=== PATIENT | male | born 1955 | race African-American/Black ===

== ENCOUNTER → 2017-05-04 | Outpatient (CLI) | payer MEDICARE ==
[~2017-05-04] MED LIST: ASPI325T8 PO; EMTR1TAB8 PO; IBUP-1060 PO; RALT400T PO; ZOLP5TAB PO
--- NOTE | 2017-05-04 10:52 | KCIC ---
EXAM: Lumbar spine MRI without contrast. HISTORY: Lower back pain. Right sided sciatica. Right leg weakness. TECHNIQUE: Multiplanar, multisequence magnetic resonance imaging of the lumbar spine was performed without contrast. COMPARISON: None. FINDINGS: There is lumbar levoscoliosis centered at L4. There is no significant listhesis. There is degenerative endplate remodeling with disc space narrowing, osteophytosis and Schmorl's node formation primarily along the right aspect of L4-L5. This corresponds with the level of maximum scoliotic concavity. There are laminectomy changes at L2-L5. The conus terminates at T12-L1. There is a mild chronic left anterior wedge deformity at T12. There is also mild decreased vertebral body height due to degenerative change along the right aspect of L4. The remainder of the vertebral bodies are normal in height. No suspicious osseous lesion is seen. There are multiple endplate Schmorl's nodes. The nerve roots are distributed peripherally at the lower lumbar vertebral levels. There is no convincing nerve root clumping. At T11-T12, there is a posterior central disc protrusion superimposed on a disc bulge and endplate remodeling. There is mild facet arthropathy. The neural foramina are excluded from the [id number]. There is no significant central canal stenosis. At T12-L1, there is mild left greater than right facet arthropathy. There is no stenosis. At L1-L2, there is moderate bilateral facet arthropathy. There is hypertrophy of the ligamentum flavum. There is mild central canal stenosis. At L2-L3, there is a disc bulge and endplate osteophytosis. There is laminectomy decompression. There is no stenosis. At L3-L4, there is a left foraminal to extra foraminal disc protrusion superimposed on a diffuse disc bulge and endplate osteophytosis. There is moderate facet arthropathy. There is laminectomy decompression. There is mild right and moderate to severe left foraminal stenosis with effacement of the exiting left L3 nerve root. At L4-L5, there are bilateral paracentral to extraforaminal disc protrusions superimposed on a disc bulge and right lateral predominant endplate osteophytosis. There is laminectomy decompression. There is severe right and mild to moderate left foraminal stenosis with effacement of the exiting right L4 nerve root and abutment of the exiting left L4 nerve root. At L5-S1, there is mild bilateral facet arthropathy. There is no stenosis. IMPRESSION: 1. Multilevel degenerative change throughout the lower thoracic and lumbar spine, described in detail above. This results in mild right and moderate to severe left foraminal stenosis at L3-L4 and severe right and [id number] left foraminal stenosis at L4-L5. 2. Laminectomy decompression changes at L2-L5. 3. Levoscoliosis centered at L4. 4. Peripheral distribution of the nerve root at the lower lumbar levels. 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 Electronically signed by: Ilda Kimbrough MD (05/04/2017 10:49 AM) [id number]
== END | disposition home or self-care (01) ==
LOC: KCIC MRI 09:22
PROVIDERS: ATTEND Nurse Practitioner Adult Health
DX: M54.41 Lumbago with sciatica, right side (principal); M48.061 Spinal stenosis, lumbar region without neurogenic claudication; M51.46 Schmorl's nodes, lumbar region; G03.8 Meningitis due to other specified causes; M54.16 Radiculopathy, lumbar region; R53.1 Weakness
CPT/HCPCS: 72148

== ENCOUNTER → 2017-05-26 | Outpatient (CLI) | payer MEDICARE ==
--- NOTE | 2017-05-26 12:18 | KCIC ---
MRI Cervical Spine Without Contrast History: Radicular pain, left-sided pain into the shoulder and scapula, neck pain for years Technique: Multiplanar, multi sequential noncontrast MR imaging was performed of the cervical spine. Comparison: None Findings: There is some motion degradation. Cervical vertebral body stature is preserved. There is mild reversal of the lordotic curvature at C5-C6. There is moderate to severe degenerative disc disease C5-C6 and to a somewhat lesser degree at C6-7, minimally at C3-4 and C4-5. There is no significant marrow edema. There is no significant abnormality of the cervical medullary junction. Cervical cord caliber is within normal limits. There is mild increased T2 and STIR signal abnormality of the cord at C3-4 at which there is spinal stenosis. C2-C3: There is fairly severe left and moderate right facet degenerative change. There is minimal disc osteophyte complex. Central canal is borderline 10 mm on developmental basis. Right neural foramen is adequate. There is overall moderate narrowing of the left neural foramen. C3-C4: There is disc osteophyte complex and bulge/protrusion. There is indentation upon the ventral thecal sac somewhat greater in the far right lateral recess. There is buckling of the ligamentum flavum. There is effacement of ventral and dorsal subarachnoid space with impingement of the cord, central canal narrowed to 4-5 mm. There is moderate to severe facet degenerative change bilaterally. There is uncovertebral degenerative change greater on the right. There is fairly severe, right greater than left neural foramina compromise. C4-C5: There is broad posterior bulge and central protrusion with effacement of the subarachnoid space and contact of the ventral cord. There is buckling of the ligamentum flavum. Central canal is narrowed to 5 to 6 mm. There is severe left and moderate right facet hypertrophic change. There is uncovertebral degenerative change. There is fairly severe left and at least moderate right neural foramina compromise. C5-C6: There is posterior bulge/protrusion with mild indentation upon the ventral thecal sac greater in the left lateral recess. Central canal is narrowed to about 7 mm, somewhat greater degree of left lateral recess stenosis. There is uncovertebral degenerative change greater on the left. There is bilateral facet hypertrophic change. There is severe left greater than right neural foramina compromise. C6-C7: There is posterior protrusion greatest centrally with mild indentation upon the ventral thecal sac, central canal narrowed to 8 mm. There is right uncovertebral degenerative change, contributes to moderate to severe narrowing of the right neural foramen. There is minimal narrowing of the left neural foramen. C7-T1: There is shallow posterior bulge. Central canal is minimally narrowed to 9 to 10 mm. There is bilateral facet hypertrophic change, also bilateral uncovertebral degenerative change. There is fairly severe left and moderate to severe right neural foramina compromise. Impression: 1. There is significant spinal stenosis to 4 to 5 mm at C3-4 at which there is impingement of the cord, somewhat lesser degree of spinal stenosis C4-5 and C5-C6 as described. There is also mild spinal stenosis C6-7 and C7-T1. There is subtle increased T2 and STIR signal abnormality of the cord at C3-4 which may be due to mild cord edema or myelomalacia. 2. There is multilevel facet and uncovertebral degenerative change resulting in multilevel neural foramina compromise including more significant narrowing bilaterally at C3-4, C5-C6, C7-T1, on the right at C6-C7, and on the left at C4-5. 3. There is degenerative disc disease greatest C5-C6. Electronically signed by: Juan Ochoa MD (05/26/2017 12:15 PM) [id number]
== END | disposition home or self-care (01) ==
LOC: KCIC MRI 11:10
PROVIDERS: ATTEND Anesthesiology Pain Medicine
DX: M48.02 Spinal stenosis, cervical region (principal); M50.323 Other cervical disc degeneration at C6-C7 level; C50.322 Malignant neoplasm of lower-inner quadrant of left male breast; C50.321 Malignant neoplasm of lower-inner quadrant of right male breast
CPT/HCPCS: 72141